=== PATIENT | male | born 1995 | race Hispanic/Latino ===

== ENCOUNTER 2022-11-29 04:09 | Emergency (ER) | payer SELFPAY ==
[2022-11-29] MEDS ORDERED: Dexamethasone 10 MG/ML VIAL ONE (04:42)
== END 2022-11-29 04:53 | disposition home or self-care (01) ==
LOC: BURERS 04:09
DX: J02.9 Acute pharyngitis, unspecified (principal)
CPT/HCPCS: 87081; 87430; 99283; J1100

== ENCOUNTER 2024-02-11 14:12 | Emergency (ER) | payer SELFPAY ==
[2024-02-11] MEDS ORDERED: Erythromycin Base 0.5% Ophth Oint 3.5 gm Tube ONE (14:31)
== END 2024-02-11 14:40 | disposition home or self-care (01) ==
LOC: BURERS 14:12
DX: H01.004 Unspecified blepharitis left upper eyelid (principal)
CPT/HCPCS: 99283